=== PATIENT | male | born 1955 | race Hispanic/Latino ===

== ENCOUNTER 2018-09-20 04:16 | Observation (INO) | payer MEDICARE, OTHER ==
[2018-09-20] MEDS ORDERED: Nitroglycerin 0.4 MG TAB (25 Tab Bottle) ONE (04:38)
[2018-09-20 04:51] LABS: Eosinophils 2 % (0-10); Hemoglobin 13.2 g/dL (14.0-18.0); Lymphocytes 8 % (21-51); MDiff Complete? YES; Mean Corpuscular Hemoglobin 28.1 pg (27.0-31.0); Mean Corpuscular Volume 85.3 fL (78.0-98.0); Monocytes 5 % (0-10); Neutrophil 84 % (42-75); Platelet Count 192 thou/uL (130-400); RBC Distribution Width 11.6 % (11.5-14.5); Reactive Lymphocytes 1 % (0-10); White Blood Cell (WBC) Count 12.8 thou/uL (4.8-10.8)
[2018-09-20 04:53] LABS: ALT (SGPT) 14 U/L (8-55); AST (SGOT) 14 U/L (5-34); Albumin 2.9 g/dL (3.4-4.8); Alkaline Phosphatase 115 U/L (40-150); Anion Gap 13 mmol/L (10-20); BUN (Urea Nitrogen) 29 mg/dL (8.4-25.7); Bilirubin, Total 0.3 mg/dL (0.2-1.2); Calc. Creatinine Clearance 0 mL/min (70-130); Calcium 8.2 mg/dL (7.8-10.44); Carbon Dioxide 22 mmol/L (23-31); Chloride 109 mmol/L (98-107); Estimated GFR-MDRD 45; Globulin 2.9 g/dL (2.4-3.5); Glucose 206 mg/dL (80-115); Potassium 3.9 mmol/L (3.5-5.1); Protein, Total 5.8 g/dL (5.8-8.1); Sodium 140 mmol/L (136-145)
[2018-09-20] MEDS ORDERED: Morphine 4 MG/ML VIAL ONE (05:02)
[2018-09-20] MEDS ORDERED: Ondansetron PF 4 MG/2 ML Vial ONE (05:03)
[2018-09-20 07:23] VITALS: BMI 36.0
[2018-09-20] MEDS ORDERED: Acetaminophen 325 MG TAB PO PRN (08:02)
[2018-09-20] MEDS ORDERED: Ondansetron PF 4 MG/2 ML Vial IVP PRN (08:02)
[2018-09-20] MEDS ORDERED: Ondansetron ODT 4 MG TAB PO PRN (08:02)
[2018-09-20] MEDS ORDERED: HYDROcodone/Acetaminophen 10/325 mg Tablet PO PRN (08:02)
[2018-09-20] MEDS ORDERED: HYDROcodone/Acetaminophen 7.5/325 mg Tablet PO PRN (08:02)
[2018-09-20] MEDS ORDERED: Dextrose 5% in Water 1,000 ML IV PRN (08:06)
[2018-09-20] MEDS ORDERED: Dextrose 50% Abboject 50 ML SYRINGE SLOW IVP PRN (08:06)
[2018-09-20] MEDS ORDERED: Methocarbamol 500 MG TAB PO PRN (08:08)
[2018-09-20] MEDS ORDERED: Morphine 4 MG/ML VIAL SLOW IVP PRN (08:10)
[2018-09-20] MEDS ORDERED: Furosemide 20 MG/2 ML VIAL SLOW IVP SCH ×2 (08:15→16:45)
--- NOTE | 2018-09-20 08:44 | RAD ---
CHEST 1 VIEW: HISTORY: Chest pain. COMPARISON: Chest radiograph 08/17/2013. FINDINGS: Heart size is enlarged. Mild pulmonary venous congestion. Likely some small effusion. IMPRESSION: Cardiomegaly. Mild pulmonary venous congestion, likely a small effusion. POS: [facility]
[2018-09-20] MEDS ORDERED: Lorazepam 0.5 MG TAB PO PRN (08:47)
[2018-09-20] MEDS ORDERED: Prevnar 13-Val Conj/PF 0.5 ML SYRINGE IM ONE (09:00)
[2018-09-20 09:18] LABS: Troponin I 0.022 ng/mL (< 0.028)
[2018-09-20] MEDS: Aspirin 81 mg Enteric Coated Tablet PO SCH (09:58)
[2018-09-20] MEDS: Enoxaparin Sodium 40 MG/0.4 ML SYRINGE SC SCH (09:59)
--- NOTE | 2018-09-20 09:59 | CT ---
CT CHEST NONCONTRAST: Indication: Pneumonia. Effusion. History of fall with chest trauma and pain. FINDINGS: There is abnormal reticular nodular and ground glass opacification of the lingula and left upper lobe . Additional punctate nodularity is seen within the right middle lobe. There is no effusion. No lobar consolidation or pneumothorax. The regional soft tissues including vasculature and lymph nodes are l imited in assessment without the presence of IV contrast. Diffuse osseous degenerative change. IMPRESSION: Abnormal reticulonodular and ground glass opacities of the lungs bilaterally. This may relate to an a typical infectious process. Recommend short term follow up chest CT in 2-3 months to confirm expected resolution, and to exclude the possibility of underlying neoplastic nodularity. Code T POS: [facility]
[2018-09-20] MEDS: Insulin Glargine 55 UNITS in Pre-Filled Syringe 1 EACH SC SCH ×2 (10:00→22:28)
[2018-09-20 11:54] LABS: Troponin I 0.026 ng/mL (< 0.028)
[2018-09-20] MEDS: Guaifenesin DM 100-10/5 ML UDCUP PO PRN (12:36)
[2018-09-20] MEDS: HumaLOG 300 UNITS/3 ML VIAL SC PRN (12:36)
--- NOTE | 2018-09-20 14:03 | HP ---
CHIEF COMPLAINT: "My chest hurts." HISTORY OF PRESENT ILLNESS: Mr. Nevarez is a 63-year-old gentleman, with a medical history of essential hypertension, insulin dependent type 2 diabetes, dyslipidemia, and history of reactive airway disease, for which he intermittently uses Symbicort, presenting in transfer from [facility] with a complaint of chest pain. He notes that 3 or 4 days ago, he began having some difficulty breathing. He developed a dry cough, with progression of the cough, resulting in sharp stabbing left-sided chest pain. The pain is worse with the cough, worse with deep breath. No reported fever at home. He also reports a few days prior to the initiation of the cough and pain, falling off his chair as he was reaching for his glasses, striking the left side of his chest. This occurred in the context of a significant amount of tequila, he is unsure of exactly the details. He did notice after this incident though increasing pain and discomfort over the left side of his chest. He has had no sputum production. No significant change in breathing with position, whether lying flat or sitting up, associated features also include itchy and watery eyes. In the [facility], a chest x-ray was performed. He mentions in the past, approximately one year ago, undergoing a stress test in [place], which was negative. In reviewing his prior records from [facility], in 2013, the patient underwent a Lexiscan Cardiolite Stress test at this facility, which was also negative. Workup in the [facility] notable for sinus rhythm with frequent preventricular contractions, rate approximately 80 beats per minute. His EKG was compared to prior EKG from 2013, showing similar left-axis deviation present. Right bundle-branch block was also present. Additional evaluation included chest x-ray, which showed pulmonary vascular congestion and possible small bilateral pleural effusions. The patient was placed on observation status at [facility], and his chief complaint at the time of my evaluation is pain with deep breathing. PAST MEDICAL HISTORY: 1. Essential hypertension. 2. Type 2 diabetes, insulin dependent. 3. Dyslipidemia. 4. Reactive airway disease. PAST SURGICAL HISTORY: 1. Bilateral cataract surgery. 2. Left knee arthroscopy. FAMILY HISTORY: Mother of complications of cancer at age 80. Father of complications of myocardial infarction at age 79. SOCIAL HISTORY: Formerly used tobacco, quit 7 years ago, 10 to 15 cigarettes per day for about 47 years. He drinks tequila daily. Estimates at least 4 to 5 shots , occasionally more. No illicit drug use. He is and lives alone. He is retired from a [employer] company. ALLERGIES: NONE. HOME MEDICATIONS: Home medication list is incomplete. He is able to tell me that he uses; 1. Lantus 55 units subcutaneously twice daily. 2. NovoLog 15 units subcutaneously three times daily. 3. Metformin 500 mg orally twice daily. 4. Lisinopril, dose unknown, daily. REVIEW OF SYSTEMS: A complete review of systems reviewed, addressed, negative except otherwise as mentioned. PHYSICAL EXAMINATION: VITAL SIGNS: Blood pressure 155/73, heart rate of 63, temperature 98.4, sating 98% on 2 L of oxygen per nasal cannula at this time. GENERAL: He is awake and alert. He is oriented to person, place, and time, able to speak in full sentences. HEENT: No scleral icterus. Mild anisocoria following cataract surgery. Mild conjunctival injection is present. Oropharynx is clear without erythema or exudate. No thrush. NECK: Supple. Full range of motion. HEART: Regular rate and rhythm without distinct murmurs. LUNGS: Noticing expiratory wheeze, visibly uncomfortable with deep breath. Decreased breath sounds at the bases bilaterally, possibly some dullness present. ABDOMEN: Obese, soft, nontender, nondistended. EXTREMITIES: No significant clubbing, cyanosis, or pedal edema. NEUROLOGICAL: He is able to move all extremities bilaterally to command without focal deficits. SKIN: Without skin rashes or skin changes. LABORATORY DATA: Labs from the outside emergency department were reviewed. Serum sodium 140, potassium 3.9, chloride 109, carbon dioxide 22, BUN 29, creatinine 1.5, glucose 206, calcium 8.2, AST 14, ALT 14. Alkaline phosphatase 115, troponin I 0.028. BNP 91, albumin 2.9. White blood cell count mildly elevated at 12.8, hemoglobin 13.2, hematocrit 40.1, and platelet count 192. He has some mild left-sided shift with 84% segmented neutrophils. EKG personally reviewed, sinus rhythm, right bundle-branch block, frequent premature ventricular contractions, heart rate at that time approximately 80 beats per minute. I personally reviewed his chest x-ray, pulmonary vascular congestion, and possibly small effusions are present. IMPRESSION: 1. Chest pain, likely pulmonary in nature, in the context of pulmonary vascular congestion on chest x-ray, mild leukocytosis, and pleuritic chest wall pain. 2. Type 2 diabetes, insulin dependent. 3. Essential hypertension. 4. Dyslipidemia. 5. Mild leukocytosis. PLAN AND RECOMMENDATIONS: 1. Cardiology. Complete cycling of cardiac biomarkers. BNP is not significantly elevated. For chest wall pain, treat symptomatically with stepwise oral agents, as well as adjunctive Robaxin for muscle spasm. Request CT imaging of chest to better delineate the possibility of pleural effusion versus infectious process. Notably , he has been afebrile. Check 2D echocardiogram to better understand ejection fraction. One dose IV Lasix 20 mg x1. We will cancel previously scheduled Lexiscan, based on clinical story. Additional possibilities include contusion of chest wall in the context of previous fall, in context of chronic moderate to heavy alcohol use. 2. Pulmonary - history of reactive airway disease/asthma. Add nebulizers and inspiratory spirometry. Antitussives also added. Previous history of tobacco use, now with cessation. 3. Deep venous thrombosis prophylaxis - Lovenox. 4. Saline lock IV fluid. N.p.o. until testing completed. 5. Endocrine - type 2 diabetes, insulin dependent, initiate sliding scale, consideration of resumption of long-acting insulin following completion of testing. 6. Given his age and comorbidity, he is at high risk. Currently, we will place on observation status with further recommendations pending hospital course. Job ID: [id number] [facility]
[2018-09-20] MEDS: Albuterol Sulfate 1.25 MG/3 ML NEB NEB SCH ×2 (14:29→23:41)
[2018-09-20] MEDS ORDERED: ALPRAZolam 0.25 MG TAB PO PRN (16:26)
[2018-09-20] MEDS ORDERED: Potassium Chloride 20 MEQ TAB PO SCH (16:45)
[2018-09-20] MEDS ORDERED: Atorvastatin Calcium 40 MG TAB PO SCH (21:00)
[2018-09-20] MEDS ORDERED: Insulin Glargine 55 UNITS in Pre-Filled Syringe 1 EACH SC SCH (21:00)
[2018-09-20] MEDS ORDERED: Albuterol Sulfate 1.25 MG/3 ML NEB ONE (23:17)
[2018-09-20] MEDS: Mometasone/Formoterol 120 PUFF INHALER INH SCH (23:43)
[2018-09-21] MEDS: Guaifenesin DM 100-10/5 ML UDCUP PO PRN ×2 (04:00→11:43)
[2018-09-21] MEDS: Mometasone/Formoterol 120 PUFF INHALER INH SCH (06:54)
[2018-09-21] MEDS: Albuterol Sulfate 1.25 MG/3 ML NEB NEB SCH (06:54)
[2018-09-21] MEDS: Aspirin 81 mg Enteric Coated Tablet PO SCH (08:50)
[2018-09-21] MEDS: Enoxaparin Sodium 40 MG/0.4 ML SYRINGE SC SCH (08:50)
[2018-09-21] MEDS: Insulin Glargine 55 UNITS in Pre-Filled Syringe 1 EACH SC SCH ×2 (08:50→11:42)
[2018-09-21] MEDS ORDERED: metFORMIN 500 MG TAB PO SCH (09:00)
[2018-09-21] MEDS ORDERED: Lisinopril 20 MG TAB PO SCH (09:00)
[2018-09-21] MEDS ORDERED: hydrALAZINE 25 MG TAB PO PRN (10:19)
[2018-09-21] MEDS ORDERED: Cetirizine HCl 10 MG TAB PO SCH (11:15)
[2018-09-21 11:36] VITALS: TEMP 97.9
[2018-09-21 11:49] VITALS: BP 173/81
[2018-09-21] MEDS: HumaLOG 300 UNITS/3 ML VIAL SC PRN (12:44)
[2018-09-21] MEDS ORDERED: Milk Of Magnesia 30 ML UDCUP PO SCH (13:15)
[2018-09-22] MEDS ORDERED: Amlodipine 5 MG TAB PO SCH (09:00)
--- NOTE | 2018-09-22 12:28 | DIS ---
DATE OF ADMISSION: 09/20/2018 DATE OF DISCHARGE: 09/21/2018 PRIMARY CARE PHYSICIAN: Mi Moore. CHIEF COMPLAINT: "My chest hurts." PRINCIPAL DIAGNOSIS ON ADMISSION: Chest wall pain. DISCHARGE DIAGNOSES: 1. Chest wall pain in the context of atypical pneumonia. 2. Type 2 diabetes, insulin dependant. 3. Essential hypertension. 4. Dyslipidemia. 5. Mild leukocytosis. 6. History of reactive airway disease. HOSPITAL COURSE: Mr. Nevarez is a 63-year-old gentleman, with a history of essential hypertension, insulin dependent type 2 diabetes, dyslipidemia, and history of reactive airway disease, for which he intermittently uses Symbicort, presenting in transfer from [facility] with complaints of chest pain. He noted 3 or 4 days prior, developing difficulty breathing as well as dry cough. With progression of the cough, he noted sharp stabbing left-sided chest pain, worse with cough, worse with deep breaths. No reported fevers or chills at home. He had also reported falling off a chair as he was reaching for his glasses, striking the left side of his chest, which had occurred at home as well prior to the onset of pain. Evaluation included a chest x-ray in the emergency department, showing cardiomegaly, mild pulmonary venous congestion, possible small effusion. A subsequent CT of the chest was performed, this is a noncontrast CT of the chest showed abnormal reticulonodular and ground glass opacities in the lungs bilaterally. This was felt to possibly related to an atypical infectious process, recommending short term followup chest CT in 2 to 3 months to confirm resolution and to exclude possibility of underlying neoplastic nodularity. Additional studies done during hospital stay included a 2D echocardiogram, which showed preserved ejection fraction of 60% to 65%, mildly dilated left atrium, mildly enlarged right atrium, mild mitral regurgitation, aortic valve sclerosis, not stenosis, mild tricuspid regurgitation, and dilated aortic root at 4.4 cm. No regional wall motion abnormalities were noted on this study. Cardiac biomarkers negative. The patient was treated symptomatically with course of antibiotic, pain medication for chest wall pain, and general supportive care. On the following day, he was feeling better, more comfortable, able to walk without difficulty. He has had no oxygen requirement. Blood pressure elevation has been an issue, I discussed initiating an amlodipine regimen in addition to his lisinopril. He was agreeable. Based on his echocardiogram result, he does not appear to have heart failure/pulmonary edema. His home medicine regimen includes a daily diuretic, which will be continued. On exam, lungs overall clear, aeration improved, chest expansion improved today relative to yesterday. Heart is regular rate and rhythm. Abdomen is soft and nontender. I discussed with him a followup CT of the chest in 3 months and have written this on a prescription for him to present to [facility] to have it scheduled. We also discussed adding amlodipine to his regimen, continuing and completing a 5-day course of antibiotics, and I provided him with pain medication in the form of [place] to use on an as needed basis for chest wall pain. He also endorses anxiety, requested the prescription for Xanax, which he also uses at home. I have provided a prescription for 25 tablets, without refills. His condition on discharge has improved. MEDICATIONS AT DISCHARGES: New medications: 1. Alprazolam 0.25 mg p.o. daily p.r.n. anxiety, prescription provided for 25 tablets with zero refills. 2. Amlodipine 5 mg p.o. once daily. 3. Atorvastatin 80 p.o. nightly. 4. Symbicort 160/4.5 two puffs inhaled twice daily. 5. Levaquin 750 mg p.o. once daily for 5 days. 6. Lisinopril 20 mg p.o. once daily. 7. Metformin 500 mg, take two tablets p.o. daily. 8. Furosemide 20 mg p.o. daily. 9. NovoLog sliding scale 15 units subcutaneously prior to meals. 10. Lantus 55 units subcu in the morning, variable dose at night based on the sliding scale, averaging 40 to 50 units in the evening. 11. [place] 7.5/325 one p.o. q.4 to 6 hours p.r.n. severe chest wall pain, dispensing 20 tablets with no refills. DIET: Diabetic. ACTIVITY: As tolerated. FOLLOWUP: Follow up with [facility] in [address] chest noncontrast in 3 months, prescription provided. Total discharge time 35 minutes. Job ID: [id number] [facility]
== END 2018-09-21 14:30 | disposition home or self-care (01) ==
LOC: SCSER 04:16 → 2SE 06:46 → 2SW 20:41
PROVIDERS: ADMIT Internal Medicine; ATTEND Internal Medicine
DX: J18.9 Pneumonia, unspecified organism (principal); R07.9 Chest pain, unspecified; E11.9 Type 2 diabetes mellitus without complications; I10 Essential (primary) hypertension; E78.5 Hyperlipidemia, unspecified; E78.00 Pure hypercholesterolemia, unspecified; D72.829 Elevated white blood cell count, unspecified; J45.909 Unspecified asthma, uncomplicated; Z79.4 Long term (current) use of insulin; Z79.899 Other long term (current) drug therapy; Z87.891 Personal history of nicotine dependence
CPT/HCPCS: 71045; 71250; 80053; 82962 ×2; 83880; 84484 ×2; 85025; 90670; 93005; 93306; 94640 ×5; 96372 ×2; 96374; 96375 ×2; 96376; 99285; G0009; G0378 ×2; 36415; 36416; 90471; J1650; J1940; J2270; J2405; J7620